=== PATIENT | female | born 1965 | race Two or more races ===

== ENCOUNTER 2024-11-20 10:23 | Outpatient (RCR) | payer MEDICAID, SELFPAY ==
--- NOTE | 2024-11-20 11:08 | PTNOTE_ITS ---
PT OP Initial Eval Patient Information Outpatient Physical Therapy Treatment Date: 11/20/24 Visit Reasons: Left hip pain Medical Diagnosis: M25.552 Treatment Dx #1: LBP with radiculopathy L LE Treatment Dx #2: L lateral hip pain Start of Care: 11/20/24 Date of Onset: 1 yr ago Smoking Status Smoking Status: Never smoker Initial Assessment Subjective: Pt is 59 yr old mauritanian speaking female who c/o LBP and pain in the glute that runs down the L LE and points to the posterior LE and L lateral hip as sites of pain. The pain limits work tolerance, sitting >1 hr, walking >45 mins. PMH: OA in B shoulders, HTN, pre-DM Imaging: none Pt goal: less LBP and L LE pain Objective: Trunk ArOM: ? B SB 50% of normal with pain to the L ? Extension: 20% with pain around L4-5, L5-S1 ? Flexion: 10 from floor with LBP L side around L5-S1 ? B rotation: 60% ? R SLR ROM: 80 deg. L SLR: 50 deg with posterior knee neural tension, LBP ? TTP: moderate paraspinals L side L5-S1, L lateral hip ? Neuro: L SLR: positive Assessment: Pt presents with trunk flexion sensitivity and overlying myofascial pain ? and TTP around L5-S1 on L side consistent with ? lower lumbar disc bulge(s) with L LE radiculopathy. Pt requires skilled therapy in order to decrease ? pain and improve sitting/standing tolerance and has fair rehab potential. Short Term and Alf Goals 1. Ind with HEP ? 2. Improved sitting/standing tolerance to 60 minutes with <=4/10 LBP ? 3. Decreased lower paraspinal TTP from mod to min L L5-S1 and lateral hip 4. Improved HH chore tolerance to at least 60 minutes with <=3/10 LBP and no ?increase in LE ssx Treatment Plan 1. Manual therapy ? 2. Therex ? 3. Modalities as indicated, moist heat, ice, estim, mechanical traction Frequency and Duration: 2x a week for 3 weeks Certification Dates: 11/20/24 to 02/19/25 Procedure Charges OP PT Eval Mod Complex 30 minutes: Yes
== END 2024-11-20 23:59 | disposition home or self-care (01) ==
LOC: CPTX 10:23
PROVIDERS: PCP Physician Assistant; Referring Provider Physician Assistant; Visit Provider Physician Assistant
DX: M54.16 Radiculopathy, lumbar region (principal); M25.552 Pain in left hip; I10 Essential (primary) hypertension
CPT/HCPCS: 97162

== ENCOUNTER 2024-12-19 11:00 | Outpatient (RCR) | payer MEDICAID, SELFPAY ==
--- NOTE | 2024-11-28 13:58 | PT.ODAYNRPT ---
PT Outpatient Daily Note OP Daily Note Outpatient Physical Therapy Treatment Date: 11/28/24 Visit Reasons: Left hip pain Subjective: Same as time of evaluation Objective: See F/S for therex MT: STM L/S with flexbar x5' Assessment: Min TTP of L/S with MT today and good demo of prone extension Plan: Continue per POC Length of Time (minutes) of Treatment: 30 Minutes Procedure Charges Therapeutic Exercise 30 minutes: Yes
--- NOTE | 2024-11-30 12:03 | PT.ODAYNRPT ---
PT Outpatient Daily Note OP Daily Note Outpatient Physical Therapy Treatment Date: 11/30/24 Visit Reasons: Left hip pain Subjective: Continued LBP Objective: See F/S for therex MT: STM L/S with flexbar x5' Assessment: Min TTP of L/S with MT today and good demo of prone extension Plan: Continue per POC Length of Time (minutes) of Treatment: 30 Minutes Procedure Charges Therapeutic Exercise 30 minutes: Yes
--- NOTE | 2024-12-06 13:34 | PT.ODAYNRPT ---
PT Outpatient Daily Note OP Daily Note Outpatient Physical Therapy Treatment Date: 12/06/24 Visit Reasons: Left hip pain Subjective: Continued LBP Objective: See F/S for therex MT: STM L/S with flexbar x5' Assessment: Min TTP of L/S with MT today and good demo of prone extension Plan: Continue per POC Length of Time (minutes) of Treatment: 30 Minutes Procedure Charges Therapeutic Exercise 30 minutes: Yes
--- NOTE | 2024-12-12 12:00 | PT.ODAYNRPT ---
PT Outpatient Daily Note OP Daily Note Outpatient Physical Therapy Treatment Date: 12/12/24 Visit Reasons: Left hip pain Subjective: Pt reports LBP and pain that goes down the leg. Objective: Please see flow sheet for ther ex list. Assessment: Please see flow sheet for ther ex list. Plan: Continue with POC. Length of Time (minutes) of Treatment: 30 Minutes Procedure Charges Therapeutic Exercise 30 minutes: Yes
--- NOTE | 2024-12-19 13:05 | PT.ODAYNRPT ---
PT Outpatient Daily Note OP Daily Note Outpatient Physical Therapy Treatment Date: 12/19/24 Visit Reasons: Left hip pain Subjective: Continued LBP and L hip pain Objective: See F/S for therex MT: STM L/S with flexbar x5' Assessment: Min TTP of L/S with MT today and good demo of prone extension Plan: Continue per POC Length of Time (minutes) of Treatment: 30 Minutes Procedure Charges Therapeutic Exercise 30 minutes: Yes
== END 2024-12-20 23:59 | disposition home or self-care (01) ==
LOC: CPTX 11:00
PROVIDERS: PCP Physician Assistant; Referring Provider Physician Assistant; Visit Provider Physician Assistant
DX: M25.552 Pain in left hip (principal); M54.50 Low back pain, unspecified; I10 Essential (primary) hypertension
CPT/HCPCS: 97110

== ENCOUNTER 2024-12-26 12:54 | Outpatient (RCR) | payer MEDICAID, SELFPAY ==
--- NOTE | 2024-12-26 13:15 | PT.ODS1RPT ---
PT OP Progress/Discharge Note Date of Service: 12/26/24 Progress Note/DC Note Progress Note/Discharge Note: DC Note Service Continue Service or Discharge: Discharge Status Subjective: Pt reports little change in LBP and L LE pain since starting therapy Objective: Trunk AROM: FB: 10 from floor Extension: 20% with pain TTP: moderate of L lateral hip and glute Assessment: Pt has attended the eval and 01/26 Rx sessions with limited progress with therapy goals due to continued LBP. Pt hasn't met goals of sitting/standing tolerance or HH chore tolerance which are still limited. Pt would benefit from further diagnostic imaging of the L/S. Plan: D/C with HEP Procedure Charges Therapeutic Exercise 30 minutes: Yes
== END 2025-01-20 23:59 | disposition home or self-care (01) ==
LOC: CPTX 12:54
PROVIDERS: PCP Physician Assistant; Referring Provider Physician Assistant; Visit Provider Physician Assistant
DX: M54.16 Radiculopathy, lumbar region (principal); M25.552 Pain in left hip; I10 Essential (primary) hypertension
CPT/HCPCS: 97110

== ENCOUNTER → 2025-02-15 | Outpatient (CLI) | payer MEDICAID, SELFPAY ==
--- NOTE | 2025-02-15 16:00 | XR_ITS ---
Examination: MRI left hip without intravenous contrast. Date and time of exam: February 15, 2025 1642 hours INDICATIONS: Left hip pain months Technique: Multiple MRI images of the left hip have been obtained T1 weighted coronal sections, TR 500, TE 12 Proton density coronal fat saturated images, TR 3000, TE 71 T2-weighted coronal images, 5850, TE 104 T1-weighted axial images, TR 521, TE 12 T2-weighted axial fat suppressed images, TR 5730, TE 103. Findings: Adequate marrow signal left hip and proximal femoral shaft No occult fracture, marrow edema, bone contusion or avascular necrosis Mild narrowing hip joints bilaterally Small [id number] images do not demonstrate labral tear Bones of the pelvis intact Contracted urinary bladder No pelvic mass IMPRESSION: Mild narrowing hip joints bilaterally. No occult fracture or bone contusion or marrow edema or avascular necrosis Negative for left hip labral tears
== END | disposition home or self-care (01) ==
LOC: SMRI 15:45
PROVIDERS: PCP Physician Assistant; Referring Provider Physician Assistant; Visit Provider Physician Assistant
DX: M25.552 Pain in left hip (principal); M25.852 Other specified joint disorders, left hip
CPT/HCPCS: 73721